=== PATIENT | male | born 1995 | race Caucasian/White ===

== ENCOUNTER 2022-10-07 13:19 | Emergency (ER) | payer BC ==
[~2022-10-07] VITALS: Ht 185.4 cm; Wt 95.3 kg
[2022-10-07 14:02] VITALS: BP 122/68
== END 2022-10-07 15:57 | disposition home or self-care (01) ==
LOC: ER 13:30
DX: S60.011A Contusion of right thumb without damage to nail, initial encounter (principal); Z60.2 Problems related to living alone; W18.30XA Fall on same level, unspecified, initial encounter; Y93.89 Activity, other specified; Y92.89 Other specified places as the place of occurrence of the external cause; Y99.8 Other external cause status
CPT/HCPCS: 73140-TC